=== PATIENT | female | born 1955 | race American Indian/Alaskan Native ===

== ENCOUNTER 2020-07-08 10:45 | Outpatient (CLI) | payer OTHER ==
--- NOTE | 2020-07-08 13:02 | XRay Report ---
LUMBOSACRAL SPINE 3 VIEWS INDICATION: low back pain. COMPARISON: None. IMPRESSION: There is 4 mm anterolisthesis of L4 with respect to L5 which appears to be secondary to degenerative facet arthropathy. The remaining lumbar vertebra are normal in alignment. Disc space he ight is preserved throughout the lumbar region. Moderate facet arthropathy is identified throughout t he lumbar spine which is most pronounced at the lowest 3 levels. The sacrum and SI joints are unremar kable. No acute osseous or soft tissue abnormality. Signer Name: Kal Nobles Jr, MD Signed: 07/08/2020 12:57 PM Workstation Name: [id number]
--- NOTE | 2020-07-08 13:02 | XRay Report ---
BILATERAL TIBIA AND FIBULA, 2 VIEWS INDICATION: DIABETES,HIGH BLOOD PRESSURE,THYROID/HEART PROBLEMS,LEG INJURIES. COMPARISON: None. IMPRESSION: No acute osseous or soft tissue abnormality. Mild osteoarthritic changes are noted at both knees. Signer Name: Kal Nobles Jr, MD Signed: 07/08/2020 12:58 PM Workstation Name: [id number]
== END 2020-07-08 10:46 | disposition home or self-care (01) ==
LOC: XRAY 10:45
PROVIDERS: ATTEND Internal Medicine
DX: M17.0 Bilateral primary osteoarthritis of knee (principal); M43.16 Spondylolisthesis, lumbar region; I10 Essential (primary) hypertension; E11.9 Type 2 diabetes mellitus without complications; E03.9 Hypothyroidism, unspecified
CPT/HCPCS: 72100

== ENCOUNTER 2020-07-10 21:03 | Emergency (ER) | payer MEDICAID, MEDICARE, OTHER ==
[2020-07-10 23:08] LABS: Basophils # (Auto) 0.1 K/mm3 (0.0-0.1); Basophils % (Auto) 0.8 % (0.0-1.8); Eosinophils # (Auto) 0.1 K/mm3 (0.0-0.4); Eosinophils % (Auto) 1.6 % (0.0-4.3); Hematocrit 37.4 % (30.3-42.9); Hemoglobin 12.8 gm/dl (10.1-14.3); Lymphocytes # (Auto) 3.1 K/mm3 (1.2-5.4); Mean Corpuscular HGB Conc 34 % (30-34); Mean Corpuscular Volume 88 fl (79-97); Monocytes # (Auto) 0.6 K/mm3 (0.0-0.8); Monocytes % (Auto) 8.2 % (0.0-7.3); Platelet Count 256 K/mm3 (140-440); Red Blood Count 4.25 M/mm3 (3.65-5.03); Red Cell Distribution Width 13.4 % (13.2-15.2)
[2020-07-10 23:27] LABS: Calcium 9.6 mg/dL (8.4-10.2)
--- NOTE | 2020-07-11 02:11 | Emergency Department Report ---
ED Dizziness HPI - General Chief Complaint: Neuro Symptoms/Deficit Stated Complaint: HEAD NUMBNESS Time Seen by Provider: 07/11/20 02:04 Source: patient Mode of arrival: Ambulatory Limitations: No Limitations - History of Present Illness Initial Comments: CC: "I have just been so dizzy." HPI: This is a 65-year-old female who has history of thyroidectomy on Synthroid diabetes mellitus, hypertension, cataract who presents with lightheadedness after medication change on Monday. She saw a physician at her primary [facility]. Blood pressure was elevated. New blood medication was added to her regimen. Since that time she has lightheadedness especially when she sits up from laying down. She has had left sided facial tingling. Over the last month she has had intermittent posterior headache since a fall. MD Complaint: lightheadedness -: Gradual, days(s) (5) Timing: gradual onset Description: lightheadedness Severity: mild Worsens With: movement, position Associated Symptoms: other (Left-sided facial tingling) - Related Data Previous Rx's Medication Instructions Recorded Last Taken Type Levothyroxine [Synthroid] 25 mcg PO QAM #30 tablet 09/20/18 Unknown Rx Pantoprazole [Protonix TAB] 20 mg PO QDAY #30 tablet. 09/20/18 Unknown Rx Sulfamethoxazole/Trimethoprim 1 each PO BID #20 tablet 09/20/18 Unknown Rx [Bactrim DS TAB] hydroCHLOROthiazide [HCTZ] 25 mg PO QDAY #30 tablet 09/20/18 Unknown Rx metFORMIN XR [Glucophage XR] 500 mg PO QDAY #30 tablet 09/20/18 Unknown Rx Allergies Allergy/AdvReac Type Severity Reaction Status Date / Time lisinopril Allergy Anaphylaxis Verified 09/20/18 19:44 ED Review of Systems ROS: Stated complaint: HEAD NUMBNESS Other details as noted in HPI Comment: All other systems reviewed and negative Constitutional: denies: fever, malaise Respiratory: denies: cough, shortness of breath Cardiovascular: denies: chest pain Gastrointestinal: denies: abdominal pain, nausea Neurological: headache, paresthesias. denies: weakness, numbness, confusion, abnormal gait ED Past Medical Hx - Past Medical History Previous Medical History?: Yes Hx Hypertension: Yes Hx Diabetes: Yes Additional medical history: thyroid. tendonitis. Bilateral Cataracts - Surgical History Past Surgical History?: Yes Additional Surgical History: Partial hysterectomy, Thyroidectomy - Social History Smoking Status: Never Smoker Substance Use Type: None - Medications Home Medications: Home Medications Medication Instructions Recorded Confirmed Last Taken Type Levothyroxine [Synthroid] 25 mcg PO QAM #30 tablet 09/20/18 Unknown Rx Pantoprazole [Protonix TAB] 20 mg PO QDAY #30 tablet. 09/20/18 Unknown Rx Sulfamethoxazole/Trimethoprim 1 each PO BID #20 tablet 09/20/18 Unknown Rx [Bactrim DS TAB] hydroCHLOROthiazide [HCTZ] 25 mg PO QDAY #30 tablet 09/20/18 Unknown Rx metFORMIN XR [Glucophage XR] 500 mg PO QDAY #30 tablet 09/20/18 Unknown Rx ED Physical Exam - General Limitations: No Limitations General appearance: alert, in no apparent distress - Head Head exam: Present: atraumatic, normocephalic - Eye Eye exam: Present: normal appearance - ENT ENT exam: Present: mucous membranes moist - Neck Neck exam: Present: normal inspection, full ROM - Respiratory Respiratory exam: Present: normal lung sounds bilaterally. Absent: respiratory distress, wheezes, rales, rhonchi - Cardiovascular Cardiovascular Exam: Present: regular rate, normal rhythm. Absent: systolic murmur, diastolic murmur, rubs, gallop - GI/Abdominal GI/Abdominal exam: Present: soft, normal bowel sounds. Absent: distended, tenderness, guarding, rebound - Extremities Exam Extremities exam: Present: normal inspection - Back Exam Back exam: Present: normal inspection - Neurological Exam Neurological exam: Present: alert, oriented X3, normal gait - Expanded Neurological Exam Expanded Patient oriented to: Present: person, place, time Speech: Present: fluid speech Cranial nerves: EOM's Intact: Normal Cerebellar function: Finger to Nose: Normal Upper motor neuron: Mayur Neglect: Normal Sensory exam: Upper Extremity Light Touch: Normal Motor strength exam: RUE: 5, LUE: 5, RLE: 5, LLE: 5 Best Eye Response (Jeanne): (4) open spontaneously Best Motor Response (Jeanne): (6) obeys commands Best Verbal Response ([place]): (5) oriented Jeanne Total: 15 - Psychiatric Psychiatric exam: Present: normal affect, normal mood - Skin Skin exam: Present: warm, dry, intact, normal color. Absent: rash ED Course Vital Signs 07/10/20 21:16 Temperature 99.7 F H Pulse Rate 98 H Respiratory 18 Rate Blood Pressure 127/77 O2 Sat by Pulse 99 Oximetry ED Medical Decision Making - Lab Data Result diagrams: 07/10/20 22:52 07/10/20 22:52 - Medical Decision Making This is a 65-year-old female with history of hypertension, thyroid disease, diabetes mellitus who presents with lightheadedness after medication change. Blood pressure in triage 127/77. I suspect that a normotensive state is quite low for patient so abruptly. I suspect that she is having adverse effect of abbott blood pressure decrease. I have asked her to hold her new medication. She will go to the fire department this week to monitor her blood pressure. I have referred her to our outpatient medicine physician. She has recently relocated to [place]. She is attempting to transfer her care to [facility]. I do not suspect CVA or intracranial hemorrhage. Patient has normal neurological exam CBC chemistry reviewed. Lab values are unremarkable. Critical care attestation.: If time is entered above; I have spent that time in minutes in the direct care of this critically ill patient, excluding procedure time. ED Disposition Clinical Impression: Lightheadedness, Medication adverse effect Disposition: [id number] TO HOME OR SELFCARE Is pt being admited?: No Does the pt Need Aspirin: No Condition: Stable Instructions: Lightheadedness (ED) Additional Instructions: Please stop taking your new blood pressure medication until you are evaluated by your primary physician. Referrals: WILLIAMS CARDOZA MD [Staff Physician] - 3-5 Days
[2020-07-11 02:21] VITALS: BP 135/91
== END 2020-07-11 02:23 | disposition home or self-care (01) ==
LOC: ED 21:03
DX: R42 Dizziness and giddiness (principal); T50.905A Adverse effect of unspecified drugs, medicaments and biological substances, initial encounter; I10 Essential (primary) hypertension; E11.9 Type 2 diabetes mellitus without complications; Z90.89 Acquired absence of other organs; Z98.890 Other specified postprocedural states; Z79.84 Long term (current) use of oral hypoglycemic drugs; Z79.899 Other long term (current) drug therapy; Z88.8 Allergy status to other drugs, medicaments and biological substances; Y92.89 Other specified places as the place of occurrence of the external cause
CPT/HCPCS: 36415; 80048; 85025